=== PATIENT | female | born 1930 | race Caucasian/White ===

== ENCOUNTER 2017-02-23 09:59 | Inpatient (IN) | payer MEDICARE, OTHER ==
[~2017-02-23] VITALS: Ht 157.5 cm; Wt 62.6 kg
[~2017-02-23 09:59] MED LIST: ASPI81TA31 PO; ATOR20TA PO; CLOP75TA15 PO; DOCU-141 PO; ESCI20TA PO; GABA300C PO; IBUP-1955 PO; LEVO100T10 PO; NITR0.4T48 SL; PANT40TA2 PO
--- NOTE | 2017-02-23 10:24 | NUR ---
PT IS IN ROOM #1A. DR FLEMING EVALUATED THE PT.
[2017-02-23 11:06] LABS: BASOPHILS % (AUTO) 0.6 % (0.0-2.0); EOSINOPHILS # (AUTO) 0.1 K/uL (0.0-0.7); EOSINOPHILS % (AUTO) 2.1 % (0.0-7.0); HEMOGLOBIN 11.8 G/DL (12.0-16.0); LYMPHOCYTES # (AUTO) 1.6 K/UL (0.8-4.8); LYMPHOCYTES % (AUTO) 29.6 % (20.5-51.5); MEAN CORPUSCULAR HEMOGLOBIN 30.5 UUG (27.0-31.0); MEAN CORPUSCULAR HGB CONC 33 g/dL (32.0-37.0); MEAN CORPUSCULAR VOLUME 93.3 FL (81.0-99.0); MONOCYTES # (AUTO) 0.4 K/UL (0.1-1.30); MONOCYTES % (AUTO) 8.1 % (0.0-11.0); NEUTROPHILS # (AUTO) 3.4 K/UL (1.8-8.9); NEUTROPHILS % (AUTO) 59.6 % (38.5-71.5); PLATELET COUNT (AUTO) 277 K/UL (150-450); RED BLOOD CELL COUNT(AUTO) 3.86 MIL/UL (4.2-5.4); WHITE BLOOD COUNT (AUTO) 5.5 K/UL (4.0-11.2)
[2017-02-23 11:12] LABS: CARBON DIOXIDE 29 mmol/L (21-32); CHLORIDE 104 mmol/L (98-107); CREATININE 0.9 mg/dL (0.6-1.3); GLUCOSE 106 mg/dL (74-106); POTASSIUM 3.9 mmol/L (3.5-5.1); UREA NITROGEN, BLOOD 16 mg/dL (7-18)
[2017-02-23 11:24] LABS: ALANINE AMINOTRANSFERASE 22 U/L (14-59); ALKALINE PHOSPHATASE 79 U/L (50-136); ASPARTATE AMINOTRANSFERASE 11 U/L (15-37); BILIRUBIN,DIRECT 0.1 mg/dL (0.0-0.2); BILIRUBIN,TOTAL 0.3 mg/dL (0.2-1.0); TOTAL PROTEIN, SERUM 7.5 g/dL (6.4-8.2)
[2017-02-23 11:25] LABS: THYROID STIMULATING HORMONE 19.194 mIU/mL (0.358-3.740)
--- NOTE | 2017-02-23 15:24 | NUR ---
PT WAS TRANSFERED TO TELEMETRY ROOM #207. REPORT GIVEN TO TRUST MANAGER ASSISTANT.
[2017-02-23 16:08] VITALS: BP 146/74
[2017-02-23 17:05] LABS: *BILIRUBIN,URIN NEGATIVE (NEGATIVE); *BLOOD, URINE NEGATIVE (NEGATIVE); *CLARITY,URINE TURBID (CLEAR); *COLOR,URINE YELLOW (YELLOW); *KETONES,URINE NEGATIVE (NEGATIVE); *PROTEIN,URINE NEGATIVE (NEGATIVE); *UROBILINOGEN,URINE 0.2 E.U./dl (NORMAL); LEUKOCYTE ESTERASE ,URINE NEGATIVE (NEGATIVE); NITRITE, URINE POSITIVE (NEGATIVE); UGLUCOSE NEGATIVE (NEGATIVE)
[2017-02-23 17:46] LABS: BACTERIA,URINE MODERATE /HPF (NONE SEEN); WBC,URINE 0-3 /HPF (0-3)
[2017-02-23 17:47] LABS: SQUAMOUS EPITHELIAL CELL,UR MODERATE /HPF (NONE SEEN); URINE AMORPHOUS PHOSPHATES MANY /HPF
[2017-02-23 20:00] VITALS: BP 130/62
--- NOTE | 2017-02-23 20:30 | NUR ---
PT REFUSED CT SCAN ABDOMEN/PELVIS PROCEDURE, PATIENT REFUSED TO SIGN CONSENT. NOTIFIED. Addendum: 02/24/17 at 0633 by JR MIR RN ADD: RADIOLOGY NOTIFIED OF PATIENT'S REFUSAL.
[2017-02-24 05:44] VITALS: BP 150/63
--- NOTE | 2017-02-24 06:00 | NUR ---
PT SLEPT WELL, IN NO ACUTE DISTRESS, NO C/O OF CHEST PAIN/SOB. NO SIGNIFICANT CHANGES THROUGHOUT THE SHIFT. BED ALARM ON, WILL CONTINUE TO MONITOR.
--- NOTE | 2017-02-24 08:00 | NUR ---
PATIENT LAYING IN BED WITH COVERS OVER HEAD, BED SIDE REPORT RECEIVED, PATIENT DENIES PAIN AT THIS TIME, APPEARS TO BE IN A GOOD MOOD, NO SIGNS OF DISTRESS NOTED.
[2017-02-24 09:14] LABS: IRON, SERUM 112 ug/dL (50-175)
[2017-02-24 09:17] LABS: ALANINE AMINOTRANSFERASE 24 U/L (14-59); ALKALINE PHOSPHATASE 76 U/L (50-136); ASPARTATE AMINOTRANSFERASE 14 U/L (15-37); BILIRUBIN,TOTAL 0.3 mg/dL (0.2-1.0); CARBON DIOXIDE 26 mmol/L (21-32); CHLORIDE 105 mmol/L (98-107); CHOLESTEROL 266 mg/dL (<200); CREATININE 0.9 mg/dL (0.6-1.3); GLUCOSE 141 mg/dL (74-106); HDL CHOLESTEROL 79 mg/dL (40-60); MAGNESIUM 2.1 mg/dL (1.8-2.4); TOTAL PROTEIN, SERUM 7.5 g/dL (6.4-8.2); TRIGLYCERIDES 140 MG/DL (30-150); UREA NITROGEN, BLOOD 17 mg/dL (7-18)
[2017-02-24 09:25] LABS: BASOPHILS % (AUTO) 0.4 % (0.0-2.0); EOSINOPHILS # (AUTO) 0.1 K/uL (0.0-0.7); EOSINOPHILS % (AUTO) 2.4 % (0.0-7.0); HEMATOCRIT 36.1 % (31.2-41.9); HEMOGLOBIN 12.5 g/dL (10.9-14.3); LYMPHOCYTES # (AUTO) 1.3 K/uL (20.0-40.0); LYMPHOCYTES % (AUTO) 32.1 % (20.5-51.5); MEAN CORPUSCULAR HEMOGLOBIN 32.8 uug (24.7-32.8); MEAN CORPUSCULAR HGB CONC 35 g/dL (32.3-35.6); MEAN CORPUSCULAR VOLUME 94.5 fL (75.5-95.3); MONOCYTES # (AUTO) 0.3 K/uL (2.0-10.0); MONOCYTES % (AUTO) 6.9 % (0.0-11.0); NEUTROPHILS # (AUTO) 2.4 K/uL (1.8-8.9); NEUTROPHILS % (AUTO) 58.2 % (38.5-71.5); PLATELET COUNT (AUTO) 255 K/uL (179-408); RED BLOOD CELL COUNT(AUTO) 3.82 MIL/uL (3.63-4.92); WHITE BLOOD COUNT (AUTO) 4.2 K/uL (3.8-11.8)
[2017-02-24 10:52] VITALS: BP 130/69
[2017-02-24 15:06] VITALS: BP 135/57
[2017-02-24 20:00] VITALS: BP 154/83
[2017-02-25 05:50] VITALS: BP 117/57
--- NOTE | 2017-02-25 06:00 | NUR ---
Patient denies chest pain, rested well last night. No acute resp. distress.
[2017-02-25 11:19] VITALS: BP 116/56
[2017-02-25] MEDS ORDERED: LEVO125T8 PO (12:49)
[2017-02-25] MEDS ORDERED: EZET10TA13 PO (12:49)
[2017-02-25] MEDS ORDERED: ASPI-618 PO (12:49)
== END 2017-02-25 13:40 | disposition home or self-care (01) | DRG 392 ==
LOC: ER 09:59 → TELE 15:17 → MED 20:54
PROVIDERS: ADMIT Internal Medicine; ATTEND Internal Medicine
DX: K29.00 Acute gastritis without bleeding (principal); I11.9 Hypertensive heart disease without heart failure; D64.9 Anemia, unspecified; I35.0 Nonrheumatic aortic (valve) stenosis; F32.9 Major depressive disorder, single episode, unspecified; E03.9 Hypothyroidism, unspecified; E78.5 Hyperlipidemia, unspecified; G44.209 Tension-type headache, unspecified, not intractable; K21.9 Gastro-esophageal reflux disease without esophagitis; T39.395A Adverse effect of other nonsteroidal anti-inflammatory drugs [NSAID], initial encounter; Y92.009 Unspecified place in unspecified non-institutional (private) residence as the place of occurrence of the external cause; Z87.440 Personal history of urinary (tract) infections; F41.9 Anxiety disorder, unspecified; I25.10 Atherosclerotic heart disease of native coronary artery without angina pectoris; Z95.5 Presence of coronary angioplasty implant and graft; Z79.02 Long term (current) use of antithrombotics/antiplatelets; Z79.82 Long term (current) use of aspirin; M94.0 Chondrocostal junction syndrome [Tietze]; M17.0 Bilateral primary osteoarthritis of knee; Z86.73 Personal history of transient ischemic attack (TIA), and cerebral infarction without residual deficits; Z79.899 Other long term (current) drug therapy; Z98.49 Cataract extraction status, unspecified eye; Z96.1 Presence of intraocular lens
CPT/HCPCS: 36415; 70030-TC; 70450; 71010; 83550; 83735; 84100; 84443; 85025; 85730; 86140; 87077; 87086; 93005; 93307; A4663; J2270

== ENCOUNTER 2018-05-30 19:02 | Emergency (ER) | payer MEDICARE, OTHER ==
[~2018-05-30] VITALS: Ht 152.4 cm; Wt 62.6 kg
[~2018-05-30 19:02] MED LIST changes: +ASPI-618 PO; -ASPI81TA31 PO; +EZET10TA13 PO; -IBUP-1955 PO; -LEVO100T10 PO; +LEVO125T8 PO
--- NOTE | 2018-05-30 19:45 | NUR ---
PT BIB GRANDDAUGHTER, A/OX4 C/O GENERALIZED WEAKNESS X 3 DAYS. VS WNL. PT DENIES PAIN, C/P, SOB, N/V/D, DIZZINESS, HEADACHE. SECONDARY COMPLAINT: BLOODY STOOL X 1 YESTERDAY. Addendum: 05/30/18 at 2019 by NAFISA LIVESTOCK SPECULATOR EQUAL BUE. NO FACIAL DROOP. NO DRIFT OF THE EXTREMITIES NOTED.
[2018-05-30] MEDS ORDERED: ACETAMINOPHEN ES 500 MG TABLET ONE (19:58)
[2018-05-30] MEDS ORDERED: ACETAMINOPHEN ES 500 MG TABLET PO ONE (20:00)
[2018-05-30 20:25] LABS: BASOPHILS % (AUTO) 0.4 % (0.0-2.0); EOSINOPHILS # (AUTO) 0.1 K/uL (0.0-0.7); EOSINOPHILS % (AUTO) 2.1 % (0.0-7.0); HEMATOCRIT 35.3 % (31.2-41.9); HEMOGLOBIN 12.1 g/dL (10.9-14.3); LYMPHOCYTES # (AUTO) 1.8 K/uL (20.0-40.0); LYMPHOCYTES % (AUTO) 32.2 % (20.5-51.5); MEAN CORPUSCULAR HEMOGLOBIN 32.5 uug (24.7-32.8); MEAN CORPUSCULAR HGB CONC 34 g/dL (32.3-35.6); MEAN CORPUSCULAR VOLUME 94.7 fL (75.5-95.3); MONOCYTES # (AUTO) 0.5 K/uL (2.0-10.0); MONOCYTES % (AUTO) 8.3 % (0.0-11.0); NEUTROPHILS # (AUTO) 3.1 K/uL (1.8-8.9); PLATELET COUNT (AUTO) 264 K/uL (179-408); RED BLOOD CELL COUNT(AUTO) 3.72 MIL/uL (3.63-4.92); WHITE BLOOD COUNT (AUTO) 5.5 K/uL (3.8-11.8)
[2018-05-30 20:33] LABS: ALANINE AMINOTRANSFERASE 33 U/L (14-59); ALKALINE PHOSPHATASE 94 U/L (50-136); ASPARTATE AMINOTRANSFERASE 20 U/L (15-37); BILIRUBIN,DIRECT < 0.1 mg/dL (0.0-0.2); BILIRUBIN,TOTAL 0.2 mg/dL (0.2-1.0); CARBON DIOXIDE 27 mmol/L (21-32); CHLORIDE 100 mmol/L (98-107); CREATININE 0.8 mg/dL (0.6-1.3); GLUCOSE 133 mg/dL (74-106); POTASSIUM 3.6 mmol/L (3.5-5.1); TOTAL PROTEIN, SERUM 7.6 g/dL (6.4-8.2); UREA NITROGEN, BLOOD 16 mg/dL (7-18)
--- NOTE | 2018-05-30 20:39 | NUR ---
MARCIA BARKER AT BEDSIDE FOR PT UPDATE.
[2018-05-30 21:07] LABS: *BILIRUBIN,URIN NEGATIVE (NEGATIVE); *BLOOD, URINE NEGATIVE (NEGATIVE); *CLARITY,URINE SLIGHTLY CLOUDY (CLEAR); *KETONES,URINE NEGATIVE (NEGATIVE); *UROBILINOGEN,URINE 0.2 E.U./dl (NORMAL); LEUKOCYTE ESTERASE ,URINE 2+ (NEGATIVE); NITRITE, URINE NEGATIVE (NEGATIVE); PH,URINE 6.5 (5.0-8.0); UGLUCOSE NEGATIVE (NEGATIVE)
[2018-05-30 21:24] LABS: *COLOR,URINE YELLOW (YELLOW)
[2018-05-30 21:26] LABS: BACTERIA,URINE MANY /HPF (NONE SEEN); MUCUS,URINE FEW /LPF (0-FEW); SQUAMOUS EPITHELIAL CELL,UR MODERATE /HPF (NONE SEEN); WBC,URINE 20-50 /HPF (0-3)
--- NOTE | 2018-05-30 21:45 | NUR ---
Patient discharged to home in stable conditon. Written and verbal after care instructions given. Patient verbalizes understanding of instructions. PT D/C W/ PRESCRIPTION. ALL BELONGINGS W/ PT. PT SELF-AMBULATED W/O DIFFICULTY. 20G IV ACCESS REMOVED PRIOR TO D/C - INNER CANNULA INTACT.
[2018-05-30 21:52] VITALS: BP 138/84
== END 2018-05-30 21:53 | disposition home or self-care (01) ==
LOC: ER 19:02
DX: N39.0 Urinary tract infection, site not specified (principal); G89.29 Other chronic pain; M25.561 Pain in right knee; M25.562 Pain in left knee; I10 Essential (primary) hypertension; I25.10 Atherosclerotic heart disease of native coronary artery without angina pectoris; I25.2 Old myocardial infarction; E03.9 Hypothyroidism, unspecified; F17.200 Nicotine dependence, unspecified, uncomplicated; Z79.82 Long term (current) use of aspirin; Z79.01 Long term (current) use of anticoagulants; Z79.899 Other long term (current) drug therapy
CPT/HCPCS: 36415; 70030-TC; 71045; 85025; 87077; 87086; 93005; A4663; A9150

== ENCOUNTER 2019-02-28 13:51 | Inpatient (IN) | payer MEDICARE, OTHER ==
[~2019-02-28] VITALS: Ht 157.5 cm; Wt 62.6 kg
[~2019-02-28 13:51] MED LIST changes: -EZET10TA13 PO; +EZET10TA15 PO
[2019-02-28 14:27] LABS: BASOPHILS % (AUTO) 0.4 % (0.0-2.0); EOSINOPHILS # (AUTO) 0.1 K/uL (0.0-0.7); EOSINOPHILS % (AUTO) 2.8 % (0.0-7.0); HEMATOCRIT 36.1 % (31.2-41.9); LYMPHOCYTES # (AUTO) 1.1 K/uL (20.0-40.0); LYMPHOCYTES % (AUTO) 30.5 % (20.5-51.5); MEAN CORPUSCULAR HEMOGLOBIN 31.1 uug (24.7-32.8); MEAN CORPUSCULAR HGB CONC 33 g/dL (32.3-35.6); MEAN CORPUSCULAR VOLUME 93.2 fL (75.5-95.3); MONOCYTES # (AUTO) 0.6 K/uL (2.0-10.0); MONOCYTES % (AUTO) 16.4 % (0.0-11.0); NEUTROPHILS # (AUTO) 1.8 K/uL (1.8-8.9); NEUTROPHILS % (AUTO) 49.9 % (38.5-71.5); PLATELET COUNT (AUTO) 228 K/uL (179-408); RED BLOOD CELL COUNT(AUTO) 3.87 MIL/uL (3.63-4.92); WHITE BLOOD COUNT (AUTO) 3.6 K/uL (3.8-11.8)
[2019-02-28 14:34] LABS: CREATININE 0.6 mg/dL (0.6-1.3); POTASSIUM 3.8 mmol/L (3.5-5.1)
[2019-02-28 14:46] LABS: BAND % (MANUAL) 4 % (0-10); EOSINOPHILS % (MANUAL) 4 % (0-8); LYMPHOCYTES % (MANUAL) 28 % (20-40); MONOCYTES % (MANUAL) 15 % (2-10); NEUTROPHILS % (MANUAL) 49 % (42-75)
[2019-02-28 15:07] LABS: BILIRUBIN,DIRECT 0.1 mg/dL (0.0-0.2); BILIRUBIN,TOTAL 0.2 mg/dL (0.2-1.0); TOTAL PROTEIN, SERUM 7.3 g/dL (6.4-8.2)
[2019-02-28] MEDS ORDERED: AMLODIPINE 5 MG TABLET PO ONE (16:45)
[2019-02-28] MEDS ORDERED: HYDROCODONE/APAP 5-325MG TABLET PO PRN (16:45)
[2019-02-28] MEDS ORDERED: MORPHINE SULFATE 2 MG/1 ML DISP.SYRIN IV PRN (16:45)
[2019-02-28] MEDS ORDERED: MAGNESIUM HYDROXIDE 30 ML LIQUID UDC PO PRN (16:45)
[2019-02-28] MEDS ORDERED: ONDANSETRON 4 MG/2 ML VIAL IV PRN (16:45)
[2019-02-28] MEDS ORDERED: MORPHINE SULFATE 2 MG/1 ML DISP.SYRIN IV ONE (16:45)
[2019-02-28] MEDS ORDERED: AMLODIPINE 5 MG TABLET ONE (16:48)
[2019-02-28] MEDS ORDERED: MORPHINE SULFATE 2 MG/1 ML DISP.SYRIN ONE (16:48)
[2019-02-28 17:40] VITALS: BP 143/74
[2019-02-28] MEDS: IV 1/2NS 1000 ML 1,000 ML IV PRN (17:57)
[2019-02-28] MEDS: ACETAMINOPHEN 325 MG TABLET PO PRN (19:03)
[2019-02-28] MEDS: ATORVASTATIN 20 MG TABLET PO SCH (21:04)
[2019-02-28] MEDS: EZETIMIBE 10 MG TABLET PO SCH (21:04)
[2019-02-28] MEDS: GABAPENTIN 300 MG CAPSULE PO SCH (21:05)
[2019-02-28 22:49] VITALS: BP 143/64
[2019-03-01] VITALS: BP 104/56
[2019-03-01 04:30] VITALS: BP 126/59
[2019-03-01] MEDS: IV 1/2NS 1000 ML 1,000 ML IV PRN ×2 (04:54→21:49)
[2019-03-01] MEDS: LEVOTHYROXINE SODIUM 125 MCG TABLET PO SCH (06:23)
[2019-03-01] MEDS: PANTOPRAZOLE SODIUM 40 MG TABLET.DR PO SCH (06:23)
[2019-03-01 06:43] LABS: BASOPHILS % (AUTO) 0.5 % (0.0-2.0); EOSINOPHILS # (AUTO) 0.1 K/uL (0.0-0.7); EOSINOPHILS % (AUTO) 4.6 % (0.0-7.0); HEMATOCRIT 32.6 % (31.2-41.9); HEMOGLOBIN 10.9 g/dL (10.9-14.3); LYMPHOCYTES # (AUTO) 1.2 K/uL (20.0-40.0); LYMPHOCYTES % (AUTO) 38.3 % (20.5-51.5); MEAN CORPUSCULAR HEMOGLOBIN 31.5 uug (24.7-32.8); MEAN CORPUSCULAR HGB CONC 33 g/dL (32.3-35.6); MEAN CORPUSCULAR VOLUME 94.3 fL (75.5-95.3); MONOCYTES # (AUTO) 0.5 K/uL (2.0-10.0); MONOCYTES % (AUTO) 15.9 % (0.0-11.0); NEUTROPHILS # (AUTO) 1.3 K/uL (1.8-8.9); NEUTROPHILS % (AUTO) 40.7 % (38.5-71.5); PLATELET COUNT (AUTO) 208 K/uL (179-408); RED BLOOD CELL COUNT(AUTO) 3.46 MIL/uL (3.63-4.92); WHITE BLOOD COUNT (AUTO) 3.1 K/uL (3.8-11.8)
[2019-03-01 07:04] LABS: ALANINE AMINOTRANSFERASE 15 U/L (14-59); ALKALINE PHOSPHATASE 84 U/L (50-136); ASPARTATE AMINOTRANSFERASE 10 U/L (15-37); BILIRUBIN,TOTAL 0.1 mg/dL (0.2-1.0); CARBON DIOXIDE 26 mmol/L (21-32); CHLORIDE 102 mmol/L (98-107); CHOLESTEROL 147 mg/dL (<200); CREATININE 0.7 mg/dL (0.6-1.3); GLUCOSE 92 mg/dL (74-106); HDL CHOLESTEROL 51 mg/dL (40-60); MAGNESIUM 1.8 mg/dL (1.8-2.4); PHOSPHOROUS 3.6 mg/dL (2.5-4.9); POTASSIUM 3.9 mmol/L (3.5-5.1); TOTAL PROTEIN, SERUM 6.4 g/dL (6.4-8.2); TRIGLYCERIDES 78 MG/DL (30-150); UREA NITROGEN, BLOOD 12 mg/dL (7-18)
[2019-03-01 07:09] LABS: THYROID STIMULATING HORMONE 7.793 mIU/mL (0.358-3.740)
[2019-03-01] MEDS: CLOPIDOGREL 75 MG TABLET PO SCH (08:02)
[2019-03-01] MEDS: DOCUSATE SODIUM 250 MG CAPSULE PO SCH (08:02)
[2019-03-01] MEDS: ASPIRIN EC 81 MG TABLET.DR PO SCH (08:02)
[2019-03-01] MEDS: ESCITALOPRAM OXALATE 10 MG TABLET PO SCH (08:02)
[2019-03-01] MEDS ORDERED: Medication Not On Formulary EA (Escitalopram Oxalate (Lexapro) 20 MG) PO SCH (09:00)
[2019-03-01] MEDS ORDERED: DOCUSATE SODIUM 100 MG CAPSULE PO SCH (09:00)
[2019-03-01 10:31] LABS: BAND % (MANUAL) 2 % (0-10); BASOPHILS % (MANUAL) 2 % (0-2); EOSINOPHILS % (MANUAL) 3 % (0-8); LYMPHOCYTES % (MANUAL) 41 % (20-40); MONOCYTES % (MANUAL) 12 % (2-10); NEUTROPHILS % (MANUAL) 40 % (42-75)
[2019-03-01 11:51] VITALS: BP 127/78
[2019-03-01] MEDS ORDERED: ACYCLOVIR IV SCH (15:15)
[2019-03-01] MEDS ORDERED: DEXTROSE 5% IV SCH (15:15)
[2019-03-01 15:52] VITALS: BP 130/78
[2019-03-01] MEDS: ACETAMINOPHEN 325 MG TABLET PO PRN (16:32)
[2019-03-01] MEDS: ACYCLOVIR IV SCH ×2 (18:54→22:24)
[2019-03-01] MEDS: DEXTROSE 5% IV SCH ×2 (18:54→22:24)
[2019-03-01] MEDS: EZETIMIBE 10 MG TABLET PO SCH (22:24)
[2019-03-01] MEDS: ATORVASTATIN 20 MG TABLET PO SCH (22:24)
[2019-03-01] MEDS: GABAPENTIN 300 MG CAPSULE PO SCH (22:24)
[2019-03-02] MEDS: ACYCLOVIR IV SCH ×2 (07:42→14:34)
[2019-03-02] MEDS: PANTOPRAZOLE SODIUM 40 MG TABLET.DR PO SCH (07:42)
[2019-03-02] MEDS: DEXTROSE 5% IV SCH ×2 (07:42→14:34)
[2019-03-02] MEDS: LEVOTHYROXINE SODIUM 125 MCG TABLET PO SCH (07:43)
[2019-03-02] MEDS: CLOPIDOGREL 75 MG TABLET PO SCH (09:27)
[2019-03-02] MEDS: ESCITALOPRAM OXALATE 10 MG TABLET PO SCH (09:27)
[2019-03-02] MEDS: ASPIRIN EC 81 MG TABLET.DR PO SCH (09:27)
[2019-03-02] MEDS: DOCUSATE SODIUM 250 MG CAPSULE PO SCH (09:27)
[2019-03-02] MEDS: IV 1/2NS 1000 ML 1,000 ML IV PRN (10:59)
[2019-03-02] MEDS: ACETAMINOPHEN 325 MG TABLET PO PRN (11:00)
[2019-03-02 12:00] VITALS: BP 173/71
[2019-03-02] MEDS ORDERED: AMLODIPINE 5 MG TABLET PO SCH (12:45)
[2019-03-02] MEDS ORDERED: hydrALAZINE HCL 25 MG TABLET PO PRN (12:45)
[2019-03-02] MEDS ORDERED: VALA500T PO (14:04)
[2019-03-02 15:44] VITALS: BP 154/75
[2019-03-02] MEDS ORDERED: VALACYCLOVIR HCL 500 MG TABLET PO SCH (22:00)
== END 2019-03-02 16:20 | disposition home health service (06) | DRG 596 ==
LOC: ER 13:51 → TELE3 16:45
PROVIDERS: ADMIT Nurse Practitioner Acute Care; ATTEND Internal Medicine
DX: B02.9 Zoster without complications (principal); K83.8 Other specified diseases of biliary tract; I25.10 Atherosclerotic heart disease of native coronary artery without angina pectoris; Z95.5 Presence of coronary angioplasty implant and graft; I11.9 Hypertensive heart disease without heart failure; Z79.82 Long term (current) use of aspirin; Z79.899 Other long term (current) drug therapy; K76.0 Fatty (change of) liver, not elsewhere classified; Z87.440 Personal history of urinary (tract) infections; E03.9 Hypothyroidism, unspecified; Z79.890 Hormone replacement therapy; E78.5 Hyperlipidemia, unspecified; M17.0 Bilateral primary osteoarthritis of knee; H40.9 Unspecified glaucoma; I27.20 Pulmonary hypertension, unspecified; K21.9 Gastro-esophageal reflux disease without esophagitis; G62.9 Polyneuropathy, unspecified; F41.9 Anxiety disorder, unspecified; F32.9 Major depressive disorder, single episode, unspecified; Z86.73 Personal history of transient ischemic attack (TIA), and cerebral infarction without residual deficits; Z98.49 Cataract extraction status, unspecified eye; Z96.1 Presence of intraocular lens; M94.0 Chondrocostal junction syndrome [Tietze]
CPT/HCPCS: 36415; 70030-TC; 71045; 76705; 83690; 83735; 84100; 84443; 85025; 85730; 93005; A4663; G0378; J0133; J2270; J3490; J7060